=== PATIENT | female | born 1995 | race African-American/Black ===

== ENCOUNTER 2017-11-05 17:45 | Emergency (ER) | payer OTHER | END 2017-11-05 19:45 | disposition home or self-care (01) | LOC: FTE 17:45 | DX: J01.90 Acute sinusitis, unspecified (principal); J45.909 Unspecified asthma, uncomplicated | CPT/HCPCS: 99283; Z7502 ==

== ENCOUNTER 2018-12-07 08:23 | Emergency (ER) | payer OTHER | END 2018-12-07 09:17 | disposition home or self-care (01) | LOC: FTE 08:23 | DX: K08.9 Disorder of teeth and supporting structures, unspecified (principal); J45.909 Unspecified asthma, uncomplicated | CPT/HCPCS: 99283; Z7502 ==